=== PATIENT | male | born 1990 | race Caucasian/White ===

== ENCOUNTER 2024-03-23 17:50 | Emergency (ER) | payer BC, OTHER ==
[2024-03-23 18:00] VITALS: BP 133/94; PULSE 74; RESP 18; TEMP 97.6; BMI 33.9
[2024-03-23] MEDS ORDERED: KETOROLAC TROMETHAMINE 30 MG/1 ML VIAL ONE (18:32)
[2024-03-23] MEDS: KETOROLAC TROMETHAMINE 30 MG/1 ML VIAL IVPUSH ONE (18:41)
[2024-03-23 18:57] LABS: BASO % 0.3 % (0-2.0); EOS % 1.9 % (0-4.5); HEMATOCRIT 43.7 % (35.4-49); LYMPH % 25.1 % (8-40); MCH 27.7 pg (25.7-33.7); MCHC 34.3 g/dl (32.0-35.9); MEAN CELL VOLUME 80.7 fl (80-96); MONO % 7.2 % (3.8-10.2); NEUT % 65.5 % (42.8-82.8); PLATELET COUNT 304 10^3/uL (134-434); RBC 5.42 M/mm3 (4.00-5.60); RDW 13.2 % (11.9-15.9); WHITE BLOOD COUNT 10.4 K/mm3 (4.0-10.0)
[2024-03-23 19:00] LABS: EPI CELLS 3 /uL (0-25.1); HYALINE CASTS 0 /uL (0-3.1); PH,URINE 5.5 (5.0-8.0); URINE APPEARANCE CLEAR; URINE BACTERIA 7 /uL (0-1359); URINE BILIRUBIN NEGATIVE (NEGATIVE); URINE COLOR YELLOW; URINE GLUCOSE (UA) NEGATIVE (NEGATIVE); URINE KETONE 1+ (NEGATIVE); URINE LEUK ESTERASE NEGATIVE (NEGATIVE); URINE NITRITE NEGATIVE (NEGATIVE); URINE PROTEIN TRACE (NEGATIVE); URINE RBC 24 /uL (0-23.9); URINE WBC 6 /uL (0-25.8)
[2024-03-23 19:16] LABS: LACTIC ACID 2.3 mmol/L (0.4-2.0)
[2024-03-23 19:20] LABS: POTASSIUM 4.1 mmol/L (3.5-5.1)
[2024-03-23 19:22] LABS: ALBUMIN 4.1 g/dl (3.4-5.0); BLOOD UREA NITROGEN 15.2 mg/dL (7-18); CALCIUM 9.4 mg/dL (8.5-10.1)
[2024-03-23 19:25] LABS: CREATININE 1.1 mg/dL (0.55-1.3)
[2024-03-23 19:27] LABS: BILIRUBIN,TOTAL 0.8 mg/dL (0.2-1); TOT PROT 8.5 g/dl (6.4-8.2)
[2024-03-23] MEDS: morphine SULFATE 4 MG/ML VIAL IVPUSH ONE (19:41)
[2024-03-23] MEDS ORDERED: morphine SULFATE 4 MG/ML VIAL ONE (19:50)
[2024-03-23] MEDS: morphine CARPU-JECT 8 MG/1 ML DISP.SYRIN IVPUSH ONE (19:56)
[2024-03-23] MEDS: SODIUM CHLORIDE 0.9% 500 ML INFUS.BAG IV ONE ×2 (19:56→21:41)
[2024-03-23] MEDS ORDERED: TAMSULOSIN HCL 0.4 MG CAP ONE (21:35)
[2024-03-23] MEDS: TAMSULOSIN HCL 0.4 MG CAP PO ONE (21:40)
[2024-03-23] MEDS ORDERED: IBUPROFEN 600 MG TABLET (FP) PO ONE ×2 (22:28→22:31)
[2024-03-30] MEDS ORDERED: INSULIN (NOVOLOG MIX 70/30) 100 UNITS/ML MDV SQ ONE (09:43)
== END 2024-03-23 22:34 | disposition home or self-care (01) ==
LOC: JER 17:50
PROC: 3E0333Z Introduction of Anti-inflammatory into Peripheral Vein, Percutaneous Approach (ICD-10-PCS; principal; 2024-03-23)
PROC: 3E033NZ Introduction of Analgesics, Hypnotics, Sedatives into Peripheral Vein, Percutaneous Approach (ICD-10-PCS; 2024-03-23)
DX: N13.2 Hydronephrosis with renal and ureteral calculous obstruction (principal); R10.32 Left lower quadrant pain
CPT/HCPCS: 36415; 74176-TC; 80053; 81003; 83605; 83690; 85025; 87086; 99284-25